=== PATIENT | male | born 1955 ===

== ENCOUNTER 2017-10-20 09:03 | Day surgery (SDC) | payer BC ==
[2017-10-20 09:57] VITALS: BMI 35.2
[2017-10-20] MEDS ORDERED: Lactated Ringer's 1,000 ML IV ONE (11:50)
[2017-10-20] MEDS ORDERED: Propofol 10 mg/ml Inj (20 ML) ONE ×2 (11:53→11:56)
[2017-10-20] MEDS ORDERED: Lidocaine Hydrochloride 5 ML INJ ONE (11:56)
[2017-10-20 12:36] VITALS: TEMP 98.6; O2SAT 100
[2017-10-20 13:13] VITALS: RESP 12
[2017-10-20 13:16] VITALS: BP 109/71; PULSE 67
== END 2017-10-20 13:14 | disposition home or self-care (01) ==
LOC: C.ENDO 09:03
PROVIDERS: ATTEND Internal Medicine Gastroenterology
DX: Z12.11 Encounter for screening for malignant neoplasm of colon (principal); K64.1 Second degree hemorrhoids
CPT/HCPCS: 45378; J2704; J7120